=== PATIENT | female | born 1990 | race Caucasian/White ===

== ENCOUNTER 2018-04-22 10:29 | Emergency (ER) | payer OTHER ==
[~2018-04-22] VITALS: Ht 162.6 cm; Wt 72.6 kg
[2018-04-22 12:42] VITALS: BP 132/78
== END 2018-04-22 12:46 | disposition home or self-care (01) ==
LOC: ER 10:33
DX: S93.401A Sprain of unspecified ligament of right ankle, initial encounter (principal); S70.01XA Contusion of right hip, initial encounter; V43.52XA Car driver injured in collision with other type car in traffic accident, initial encounter; Y93.89 Activity, other specified; Y99.8 Other external cause status; Y92.410 Unspecified street and highway as the place of occurrence of the external cause
CPT/HCPCS: 73502; 73600

== ENCOUNTER 2023-05-13 07:34 | Emergency (ER) | payer OTHER ==
[~2023-05-13] VITALS: Ht 165.1 cm; Wt 70.3 kg
[2023-05-13] MEDS ORDERED: ASPirin 81 mg TAB PO ONE (07:45)
[2023-05-13 07:53] LABS: Basophils # (auto) 0 10 ^3/uL (0-0.2); Basophils % (auto) 0.3 % (0.0-2.0); Eosinophils # (auto) 0.1 10 ^3/uL (0-0.8); Eosinophils % (auto) 0.5 % (0.0-7.0); Hematocrit 42.3 % (36.0-46.0); Hemoglobin 13.7 g/dL (12.2-16.2); Lymphocytes % (auto) 15.3 % (10.0-50.0); Mean Corpuscular Hemoglobin 29.4 pg (28.0-32.0); Mean Corpuscular Hgb Conc. 32.5 g/dL (32.0-36.0); Mean Corpuscular Volume 90.6 fL (80.0-100.0); Monocytes # (auto) 0.8 10 ^3/uL (0-1.3); Monocytes % (auto) 5.7 % (0.0-12.0); Neutrophils # (auto) 10.4 10 ^3/uL (1.6-8.6); Neutrophils % (auto) 78.2 % (37.0-80.0); Nucleated Red Blood Cells % 0.1 %; Red Blood Cells 4.67 10^6/uL (4.0-5.20); Red Cell Distribution Width 12.9 % (11.8-14.3); White Blood Cell 13.3 10^3/uL (4.4-10.8)
[2023-05-13 08:17] LABS: Alanine Aminotransferase 13 U/L (7-40); Albumin 5.1 g/dL (3.2-4.8); Alkaline Phosphatase 47 U/L (46-116); Anion Gap 7 (5-15); Aspartate Aminotransferase 18 U/L (13-40); BUN/Creatinine Ratio 8.7 (10.0-20.0); Blood Urea Nitrogen 8 mg/dL (9-23); Calcium 9.6 mg/dL (8.5-10.1); Carbon Dioxide 26 mmol/L (20-30); Chloride 106 mmol/L (98-107); Glucose 107 mg/dL (74-106); Potassium 3.4 mmol/L (3.5-5.1); Sodium 139 mmol/L (136-145)
[2023-05-13 08:18] LABS: Bilirubin, Total 0.7 mg/dL (0.2-1.0); Total Protein 7.8 g/dL (5.7-8.2)
[2023-05-13] MEDS ORDERED: AZIT1POW PO (10:27)
[2023-05-13 10:30] VITALS: BP 115/73; PULSE 69; RESP 15; TEMP 97.6; O2SAT 99
== END 2023-05-13 10:45 | disposition home or self-care (01) ==
LOC: ER 07:34
DX: J20.9 Acute bronchitis, unspecified (principal); R07.89 Other chest pain; Z88.2 Allergy status to sulfonamides
CPT/HCPCS: 36415; 71046; 80053; 82962; 84484; 85025; 93005